=== PATIENT | female | born 1970 | race Caucasian/White ===

== ENCOUNTER 2019-10-28 09:58 | Inpatient (IN) | payer OTHER ==
[~2019-10-28] VITALS: Ht 154.9 cm; Wt 44.5 kg
[~2019-10-28 09:58] MED LIST: AMBIEN 10 MG TA10 MG PO; ANTI-DIARRHEA2 MG PO; BENTYL20 MG PO; CARAFATE 1 GM TA1 G1 PO; CITRATE OF MAG296 ML PO; CLONAZEPAM; CLONAZEPAM 0.50.5 M1 PO; CO Q-10150 MG PO; DULCOLAX5 MG PO; HYDROXYZINE HCL25 M1 PO; IRON325 PO; K-DUR 20 MEQ T20 MEQ PO; MIRALAX255 GM PO; NORCO 5-325 TA1 EACH PO; OXYCODONE HCL5 M1 PO; OXYCONTIN40 MG PO; PEPCID40 MG PO; PERCOCET 5-3251 EACH PO; PHENERGAN 25 MG25 M1 PO; PHENERGAN 25 MG25 MG PO; POTASSIUM20 PO; PRILOSEC40 MG PO; PROMS25 WY RECTAL; PROTONIX40 M2 PO; REMERON30 M1 PO; TIROSINT75 MCG PO; TRAMADOL 50 MG50 MG PO; ULTRAM 50MG TAB50 MG PO; ZANTAC 150MG T150 MG PO; ZOFRAN 4 MG ORAL4 M1 DIS; ZOFRAN ODT4 MG PO
[2019-10-28 10:03] VITALS: BP 149/71
[2019-10-28] MEDS ORDERED: MELATONIN3 M1 PO (10:19)
[2019-10-28 10:26] LABS: ABSOLUTE NEUTROPHILS 4.4 thou/uL (1.4-8.2); BASOPHILS 1.4 % (0.0-2.0); EOSINOPHILS 3.6 % (0.0-3.0); HEMATOCRIT 35.9 % (37.0-47.0); HEMOGLOBIN 11.8 gm/dL (12.0-15.0); MCH 30.2 pg (26.0-34.0); MCHC 32.8 g/dL (28.0-37.0); MCV 91.9 fL (80.0-100.0); MONOCYTES 6.9 % (1.0-8.0); PLATELET COUNT 456 thou/uL (150-400); POLYS 73.1 % (36.0-66.0); RBC 3.91 mil/uL (4.20-5.00); RDW 14.7 % (10.5-14.5)
[2019-10-28 10:34] LABS: ANION GAP 11 mmol/L (7-16); BUN 22 mg/dL (7-18); CALCIUM 9.3 mg/dL (8.5-10.1); CHLORIDE 101 mmol/L (98-107); CO2 27 mmol/L (21-32); CREATININE 0.8 mg/dL (0.6-1.0); GLUCOSE 116 mg/dL (74-106); POTASSIUM 3.8 mmol/L (3.5-5.1); SODIUM 139 mmol/L (136-145)
[2019-10-28 10:44] LABS: LIPASE 93 U/L (73-393); SGOT 17 U/L (15-37); SGPT 19 U/L (30-65); TOTAL BILIRUBIN 0.1 mg/dL (<0.1-1.0); TOTAL PROTEIN 7.4 g/dL (6.4-8.2); TROPONIN-I <0.06 ng/mL (<0.06)
[2019-10-28 12:24] LABS: URINE BILIRUBIN NEGATIVE (Negative); URINE BLOOD NEGATIVE (Negative); URINE CLARITY CLEAR; URINE COLOR YELLOW; URINE GLUCOSE-RANDOM* NEGATIVE (Negative); URINE KETONES NEGATIVE (Negative); URINE LEUKOCYTES-REFLEX NEGATIVE (Negative); URINE NITRITE-REFLEX NEGATIVE (Negative); URINE PROTEIN (DIPSTICK) NEGATIVE (Negative); URINE SPECIFIC GRAVITY <= 1.005 (1.005-1.035); URINE UROBILINOGEN 0.2 E.U./dl (0.2-1.0)
[2019-10-28 13:40] VITALS: BP 117/51
--- NOTE | 2019-10-28 14:15 | NUR ---
ATTEMPTED TO CALL REPORT TO 355 NURSE, NOT ABLE TO TAKE AT THIS TIME,.WILL CALL ME BACK
[2019-10-28 14:42] VITALS: BP 108/51
[2019-10-28 19:20] VITALS: BP 126/57
--- NOTE | 2019-10-29 03:42 | NUR ---
ASSUMED CARE OF PATIENT AT 1900. PATIENT IS A COVID-19 RULE OUT AND STILL AWAITING COVID TESTING RESULTS. PATIENT IS AFEBRILE ON SHIFT WITH A NON-PRODUCTIVE DRY COUGH. PATIENT CONSISTENTLY RATES PAIN IN ABDOMEN AN 8 OR ABOVE T/O NOC AND REQUESTS PRN MORPHINE ROUTINELY Q4H. ADMINISTERED ORDERED. PATIENT DID INQUIRE ABOUT STARTING BACLOFEN AND STATED SHE WOULD ASK HER PHYSICIAN ABOUT IT IN THE AM. PATIENT STABLE. WILL CONTINUE TO MONITOR.
[2019-10-29 04:17] VITALS: BP 124/77
[2019-10-29 05:25] LABS: HEMATOCRIT 36.7 % (37.0-47.0); HEMOGLOBIN 11.8 gm/dL (12.0-15.0); MCH 30.2 pg (26.0-34.0); MCHC 32.1 g/dL (28.0-37.0); MCV 94.3 fL (80.0-100.0); RBC 3.9 mil/uL (4.20-5.00); RDW 15.3 % (10.5-14.5); WBC 3.7 thou/uL (4.0-11.0)
[2019-10-29 05:26] LABS: CREATININE 0.5 mg/dL (0.6-1.0); POTASSIUM 4.1 mmol/L (3.5-5.1)
[2019-10-29 08:00] VITALS: BP 134/83
--- NOTE | 2019-10-29 08:48 | EKG ---
[facility] [place] [address] ELECTROCARDIOGRAM REPORT Name: KINJAL GROSSMAN Room #: 355-P ADM IN M.R.#: [id number] Admission: 10/28/19 Attend Phys: Jaison Diamond MD Discharge: Date of : 70 Report #: [id number] THIS REPORT FOR: cc: MYRA - No family physician/PCP FAM - No family physician/PCP Johann Goetz MD [facility] THIS REPORT FOR: //name// [facility] ED Test Date: 2019-10-28 Test Time: 10:06:30 Pat Name: KINJAL GROSSMAN Department: Room: [facility] Gender: F University Dean: KF : 1970 Requested By: Edwin Hay Order Number: [id number] MD: Johann Goetz Measurements Intervals [place] Rate: 94 P: 40 MN: 100 QRS: 73 QRSD: 85 T: 39 QT: 358 QTc: 448 Interpretive Statements Sinus rhythm Short MN interval Compared to ECG 05/03/2015 11:22:31 No significant change was found Electronically Signed On 10-29-2019 8:46:50 CDT by Johann Goetz [email or web address] <ELECTRONICALLY SIGNED> By: Johann Goetz MD, FACC 10/29/19 0846 1006 1006 Johann Goetz MD, [facility] /EPI
[2019-10-29 10:35] VITALS: BP 134/83
--- NOTE | 2019-10-29 11:09 | NUR ---
PT ADMITTED AT 10/28/19 FOR SBO AND COUGHING, PT IS A&OX3, PT'S VS ARE STABLE, PT DOES NOT HAVE FEVER, PT'S ABD PAIN CAN CONTROL BY MEDIACATION, PT'S ABD PAIN AND N/V HAVE IMPROVED, PT HAD BM YESTODAY, PT HAS PASS GAS TODAY, PT IS TOLERATED FULL LIQUID DIET, PT REQUESTS DC HOME TODAY, RN HAS CALLED HOSPITAL DR , AND RN HAS RECEIVED TO DC PT , SURGICAL DR IS OK FOR PT TO DC HOME.
[2019-10-29 12:31] VITALS: BP 136/68
--- NOTE | 2019-10-29 13:13 | NUR ---
INITIAL ASSESSMENT/DISCHARGE NOTE: FAB reviewed chart and spoke with nursing and attending physician. Pt was admitted due to abdominal pain/PSBO. Pt is in Enhanced Isolation to r/o COVID-19. Pt requesting to discharge today. Pt tolerating diet. Physician completed discharge orders. SW received call from pt's nurse stating pt needs transportation back to the hotel, where she has been staying. FAB spoke with pt via phone. Introduced role of SW. Pt is alert/orientated x 4. Pt reports that she has been living at the [address] [place] [address] . Pt states that she does not have anyone that would be able to provide transportation home. Pt is ambulatory. SW discussed process for arranging transportation for COVID-19 pending pts. Pt gave consent for SW to disclose to the transportation company that pt is COVID-19 pending. Pt verbalized understanding that she will need to wear a mask and gloves for transport. Pt states she will remain in her hotel room until she has received the results of the COVID-19 test. FAB discussed with Director of Case Mgmt. Authorization obtained to use [employer], who are able to transport "Presumptive of Known Positive Infectious Passengers." FAB spoke with Angelita at [facility] to arrange transportation for 1400 today. pt's info provided. [facility] to provide [facility] refrigerated company driver with mask and gloves. Voucher # [id number] provided to pt. FAB updated pt's RN, who has mask and gloves ready to give to pt's refrigerated company driver. [facility] to contact nurses station upon their arrival. Pt to be taken to main entrance. FAB spoke with pt via phone to provide update. No additional SW needs identified at this time, but is available to assist should needs arise.
--- NOTE | 2019-10-29 13:58 | NUR ---
RN HAS GIVING PT'S DC TEACHING, PT UNDERSTANDS WELL , PT DC TO HOME AT 1400PM.
== END 2019-10-29 14:00 | disposition home or self-care (01) | DRG 389 ==
LOC: ER 09:58 → EROBS 13:21 → 3W 14:47
PROVIDERS: Emergency Medicine; ADMIT Hospitalist
DX: K56.600 Partial intestinal obstruction, unspecified as to cause (principal); G10 Huntington's disease; F17.210 Nicotine dependence, cigarettes, uncomplicated; K59.00 Constipation, unspecified; Z87.442 Personal history of urinary calculi; Z09 Encounter for follow-up examination after completed treatment for conditions other than malignant neoplasm; Z86.14 Personal history of Methicillin resistant Staphylococcus aureus infection; Z88.1 Allergy status to other antibiotic agents; Z88.8 Allergy status to other drugs, medicaments and biological substances; Z79.899 Other long term (current) drug therapy
CPT/HCPCS: 10080

== ENCOUNTER 2020-04-05 10:07 | Emergency (ER) | payer OTHER ==
[~2020-04-05] VITALS: Ht 154.9 cm; Wt 39.9 kg
[~2020-04-05 10:07] MED LIST changes: +ATIVAN1 M1 PO; +AUGMENTIN 875-1 EACH PO; +BACLOFEN 10MG T10 MG PO; +BENTYL 10 MG CA10 M1 PO; +BENTYL 20 MG TA20 M1 PO; +DICYCLOMINE HCL20 MG PO; +MELATONIN3 M1 PO; +NORCO 5-325 TA1 EAC1 PO; +ONDANSETRON HCL4 M2 PO; +PRILOSEC OTC20 MG PO; +REMERON30 MG PO; +ZOFRAN ODT4 MG DISSOLVE; +ZOFRAN ODT4 MG SUBLING
[2020-04-05 11:27] LABS: ABSOLUTE NEUTROPHILS 3.4 thou/uL (1.4-8.2); EOSINOPHILS 0.5 % (0.0-3.0); HEMATOCRIT 34.6 % (37.0-47.0); HEMOGLOBIN 11.3 gm/dL (12.0-15.0); LYMPHOCYTES 18.3 % (24.0-44.0); MCH 28.9 pg (26.0-34.0); MCHC 32.6 g/dL (28.0-37.0); MCV 88.5 fL (80.0-100.0); MONOCYTES 7.1 % (1.0-8.0); PLATELET COUNT 323 thou/uL (150-400); POLYS 73.1 % (36.0-66.0); RBC 3.91 mil/uL (4.20-5.00); RDW 16.2 % (10.5-14.5); WBC 4.7 thou/uL (4.0-11.0)
[2020-04-05 11:37] LABS: URINE BILIRUBIN NEGATIVE (Negative); URINE BLOOD TRACE (Negative); URINE CLARITY CLEAR; URINE COLOR YELLOW; URINE GLUCOSE-RANDOM* NEGATIVE (Negative); URINE KETONES NEGATIVE (Negative); URINE LEUKOCYTES-REFLEX NEGATIVE (Negative); URINE NITRITE-REFLEX NEGATIVE (Negative); URINE PROTEIN (DIPSTICK) NEGATIVE (Negative); URINE SPECIFIC GRAVITY 1.015 (1.005-1.035); URINE UROBILINOGEN 0.2 E.U./dl (0.2-1.0)
[2020-04-05 11:53] LABS: CALCIUM 8.6 mg/dL (8.5-10.1); CREATININE 0.5 mg/dL (0.6-1.0); POTASSIUM 3.4 mmol/L (3.5-5.1)
[2020-04-05 11:59] LABS: ALBUMIN 2.8 g/dL (3.4-5.0); TOTAL BILIRUBIN 0.2 mg/dL (0.2-1.0); TOTAL PROTEIN 6.8 g/dL (6.4-8.2)
[2020-04-05] MEDS ORDERED: NORCO 5-325 TA1 EAC2 PO (14:10)
[2020-04-05] MEDS ORDERED: ONDANSETRON HCL4 M2 PO (14:10)
[2020-04-05] MEDS ORDERED: ERYTHROMYCIN250 MG PO (14:10)
[2020-04-05 14:36] VITALS: BP 153/69
== END 2020-04-05 14:40 | disposition home or self-care (01) ==
LOC: ER 10:07
PROVIDERS: Physician Assistant
DX: K31.84 Gastroparesis (principal); R11.2 Nausea with vomiting, unspecified; F17.210 Nicotine dependence, cigarettes, uncomplicated; Z98.84 Bariatric surgery status; Z90.49 Acquired absence of other specified parts of digestive tract; Z87.442 Personal history of urinary calculi; Z88.8 Allergy status to other drugs, medicaments and biological substances; Z88.6 Allergy status to analgesic agent; Z79.2 Long term (current) use of antibiotics; Z79.899 Other long term (current) drug therapy; Z91.018 Allergy to other foods; Z88.1 Allergy status to other antibiotic agents; Z91.048 Other nonmedicinal substance allergy status

== ENCOUNTER 2020-04-08 09:51 | Inpatient (IN) | payer OTHER ==
[~2020-04-08] VITALS: Ht 154.9 cm; Wt 39.9 kg
[~2020-04-08 09:51] MED LIST changes: +ERYTHROMYCIN250 MG PO; +NORCO 5-325 TA1 EAC2 PO
[2020-04-08] MEDS ORDERED: HYDROCODON-ACE1 EAC7 PO (09:56)
[2020-04-08 09:57] VITALS: BP 173/78
[2020-04-08 11:22] LABS: URINE BILIRUBIN NEGATIVE (Negative); URINE BLOOD TRACE (Negative); URINE CLARITY CLEAR; URINE COLOR YELLOW; URINE GLUCOSE-RANDOM* NEGATIVE (Negative); URINE KETONES NEGATIVE (Negative); URINE LEUKOCYTES-REFLEX NEGATIVE (Negative); URINE NITRITE-REFLEX NEGATIVE (Negative); URINE PROTEIN (DIPSTICK) NEGATIVE (Negative); URINE SPECIFIC GRAVITY 1.015 (1.005-1.035); URINE UROBILINOGEN 0.2 E.U./dl (0.2-1.0)
[2020-04-08 11:28] LABS: ABSOLUTE NEUTROPHILS 3.6 thou/uL (1.4-8.2); BASOPHILS 0.7 % (0.0-2.0); EOSINOPHILS 0.7 % (0.0-3.0); HEMATOCRIT 33.6 % (37.0-47.0); HEMOGLOBIN 11.4 gm/dL (12.0-15.0); LYMPHOCYTES 15.7 % (24.0-44.0); MCH 29.7 pg (26.0-34.0); MCHC 33.8 g/dL (28.0-37.0); MCV 87.9 fL (80.0-100.0); MONOCYTES 8.1 % (1.0-8.0); PLATELET COUNT 279 thou/uL (150-400); POLYS 74.8 % (36.0-66.0); RBC 3.83 mil/uL (4.20-5.00); RDW 16.1 % (10.5-14.5); WBC 4.8 thou/uL (4.0-11.0)
[2020-04-08 11:35] LABS: ANION GAP 8 mmol/L (7-16); BUN 10 mg/dL (7-18); CALCIUM 8.3 mg/dL (8.5-10.1); CHLORIDE 105 mmol/L (98-107); CO2 29 mmol/L (21-32); CREATININE 0.5 mg/dL (0.6-1.0); GLUCOSE 96 mg/dL (74-106); POTASSIUM 3.8 mmol/L (3.5-5.1); SODIUM 142 mmol/L (136-145)
[2020-04-08 11:39] LABS: ALBUMIN 2.9 g/dL (3.4-5.0); DIRECT BILIRUBIN < 0.1 mg/dL (<0.1-0.2); LIPASE 89 U/L (73-393); SGOT 16 U/L (15-37); SGPT 17 U/L (30-65); TOTAL BILIRUBIN 0.2 mg/dL (0.2-1.0)
[2020-04-08 15:58] LABS: AMP/METHAMP Negative (Negative); BARBITURATES Negative (Negative); BENZODIAZEPINES Negative (Negative); COCAINE Negative (Negative); METHADONE Negative (Negative); OPIATES POSITIVE (Negative); PCP Negative (Negative)
[2020-04-08 16:54] VITALS: BP 157/61
[2020-04-08 17:34] VITALS: BP 145/78
--- NOTE | 2020-04-08 20:54 | NUR ---
Assumed care of pt. at 1800. Pt. was calm and cooperative. Pt. was not in any pain at the moment. Pt. handed off to awake overnight monitor.
[2020-04-08 22:31] VITALS: BP 144/79
[2020-04-09 03:32] VITALS: BP 139/81
--- NOTE | 2020-04-09 05:37 | NUR ---
ASSUMED CARE OF PT AT 1900. PT IS A/O X4 AND UP AD JOSHUA. C/O PAIN AND NAUSEA TO STOMACH. PRN STOMACH DISCOMFORT AND NAUSEA MEDICATION GIVEN DIRECTED. PT UNABLE TO TOLERATE JELLO. STATES IT MAKES HER FEEL MORE SICK TO HER STOMACH. ABLE TO KEEP DOWN CHICKEN BROTH. NO FURTHER COMPLAINTS. PT IS CURRENTLY LYING IN HER BED AND WATCHING TV. CALL LIGHT IS WITHIN REACH. WILL CONTINUE TO MONITOR.
[2020-04-09 05:47] LABS: ALBUMIN 2.4 g/dL (3.4-5.0); CALCIUM 7.9 mg/dL (8.5-10.1); CREATININE 0.6 mg/dL (0.6-1.0); MAGNESIUM 2.3 mg/dL (1.8-2.4); POTASSIUM 4.7 mmol/L (3.5-5.1); TOTAL BILIRUBIN 0.2 mg/dL (0.2-1.0); TOTAL PROTEIN 6.1 g/dL (6.4-8.2)
[2020-04-09 08:24] VITALS: BP 145/73
[2020-04-09 16:44] VITALS: BP 148/72
--- NOTE | 2020-04-09 17:34 | NUR ---
Assumed care of pt. at 0700. Pt. was calm and cooperative. Pt. did become anxious and asked about anxiety medication. Physician notified, no orders received. Pt. remained stable with no other complaints for the duration of the shift.
[2020-04-09 19:47] VITALS: BP 151/71
--- NOTE | 2020-04-10 02:55 | NUR ---
PT ASSESSED AT START OF SHIFT. A&OX4 C/O ANXIETY CALLED ADMITTING PROVIDED AND HYDROXYZINE RESTARTED. PT UP AD JOSHUA WALKED THE HALLWAYS. IV INTACT WITH IVF. CALL LIGHT AT REACH WILL CONT WITH POC TILL EOS.
[2020-04-10 07:10] VITALS: BP 159/85
[2020-04-10 16:15] VITALS: BP 151/76
[2020-04-10 19:55] VITALS: BP 129/66
--- NOTE | 2020-04-10 20:15 | NUR ---
Assumed care of pt. at 0700. Pt. is calm and cooperative. Pt. constantly roams unit and asks when next medication is due. Pt. fixated and anxiety meds that she did not receive until order came from physician in the afternoon.
--- NOTE | 2020-04-11 03:55 | NUR ---
PATIENT ALERT AND ORIENTED X4. UP ADLIB IN ROOM AND HALLWAY. IVF INFUSING W/O COMPLICATION. INSTRUCTED THAT SHE WILL BE NPO AFTER MN DURING SHIFT CHANGE AND PATIENT ACKNOWLEDGED. BM DURING THE NIGHT. PATIENT HAS BEEN NPO SINCE 04/10/20 AT 2359. MEDICATED WITH ZOFRAN X1 AT TIME OF NOTE. PATIENT C/O DIARRHEA. WILL MONITOR.
[2020-04-11 05:46] LABS: HEMATOCRIT 38.8 % (37.0-47.0); HEMOGLOBIN 12.2 gm/dL (12.0-15.0); MCH 28.3 pg (26.0-34.0); MCHC 31.5 g/dL (28.0-37.0); RBC 4.31 mil/uL (4.20-5.00); WBC 3.1 thou/uL (4.0-11.0)
[2020-04-11 05:58] LABS: PROTIME 10.2 Seconds (9.3-11.4)
[2020-04-11 06:11] LABS: ALBUMIN 2.9 g/dL (3.4-5.0); CALCIUM 8.6 mg/dL (8.5-10.1); CREATININE 0.7 mg/dL (0.6-1.0); POTASSIUM 4.6 mmol/L (3.5-5.1); TOTAL BILIRUBIN 0.2 mg/dL (0.2-1.0); TOTAL PROTEIN 6.8 g/dL (6.4-8.2)
[2020-04-11 07:10] VITALS: BP 149/65
[2020-04-11 16:10] VITALS: BP 124/73
--- NOTE | 2020-04-11 16:24 | NUR ---
PT ADMITTED RELATED TO Gastroperesis. CM REVIEWED CHART AND SPOKE WITH CARE TEAM. CM CALLED AND SPOKE WITH PT AT BEDSIDE THIS DAY. PT APPREARED TO BE A&O X4. CM ROLE INTRODUCED. PT INDICATED SHE HAD BEEN STAYING IN A MOBILE HOME WITH HER FRIEND DAVIDSON. SHE INDICATED 4 STEPS TO ENTER AND NONE INSIDE. PT INDICATED SHE IS INTERESTED IN GOING TO A FACILITY. ASKED THAT REFERRAL BE SRNT TO [facility]. REFERRAL SENT. PT HAVING EGD TODAY. CM TO FOLLOW INDICATED WITH DC PLANNING.
--- NOTE | 2020-04-11 16:41 | NUR ---
FAXED REFERRAL TO [facility] RECEIVED CONFIRMATION AND LEFT MSG WITH MARIA DEL ROSARIO HANSEN. DP TO FOLLOW.
[2020-04-11 21:20] VITALS: BP 139/70
--- NOTE | 2020-04-12 00:57 | NUR ---
PT CARE ASSUMED WITH PATIENT IN ROOM AND IN BED WATCHING TV AT 1900.PT IS A/O X4.PT IS UP AD JOSHUA.PT WAS ON FULL LIQUID DIET AND NPO MIDNIGHT FOR EGD AND BARIUM SWALLOW IF COVID TEST RESULT IS NEGATIVE.PT C/O PF NAUSEA AND STOMACH CRAMPS AND HAD ZOFRAN AND DICYCLOMINE WITH RELIEF.WILL CONTINUE TO MONITOR PER POC
[2020-04-12 04:05] VITALS: BP 140/82
[2020-04-12 08:00] VITALS: BP 166/88
[2020-04-12] MEDS ORDERED: ERYTHROMYCIN500 MG PO (12:17)
[2020-04-12] MEDS ORDERED: DICYCLOMINE HCL20 MG PO (12:17)
[2020-04-12 13:05] VITALS: BP 166/88
--- NOTE | 2020-04-12 14:38 | NUR ---
[facility] PROVIDED PT W/[facility] CONTACT INFORMATION SO SHE CAN F/U W/ THE FACILITIES RE: LTC, [facility] SENT REFERRALS TO FACILITIES ON THE PT'S BEHALF.
--- NOTE | 2020-04-13 08:45 | HC ---
[facility] [place] [address] [address] CONSULTATION Name: CHAUNCEYKINJAL HILLS Room #: 437-P [facility] IN M.R.#: [id number] Admission: 04/08/20 Attend Phys: Дмитрий Zarate MD Discharge: 04/12/20 Date of : 70 Report #: [id number] THIS REPORT FOR: cc: MYRA - Aileen family physician/PCP MYRA - Aileen family physician/PCP Jorge Drake MD ~ CC: Jorge RENTERIA physician/PCP DATE OF SERVICE: 04/08/2020 HISTORY OF PRESENT ILLNESS: The patient is a 50-year-old female reportedly with a history of gastroparesis with recurrent nausea and vomiting, was seen in the Emergency Room for similar symptoms on 04/05/2020. Apparently, he has had a reaction to Reglan in the past; therefore, recommended erythromycin and Zofran, which she has been taking; however, erythromycin was too expensive apparently and the patient has not tried this. The patient has a complex history and that she has had multiple abdominal surgeries including a Billroth procedure and perhaps switched to a Sneha-en-Y procedure at some point. She has undergone upper endoscopies in the past, last one being several years ago per the patient with dilation. She denies any true dysphagia at this time. She says she has not been able to keep anything down in general, including her medications. She does report some abdominal cramping. She denies any fevers or chills. No chest pain or shortness of breath. No cough or sputum production at this time. Her gastric emptying study in the past that was abnormal. She has had multiple CT scans over the years on the computer. Most recent CT was on 04/05/2020 of the abdomen and pelvis. This showed surgical changes of gastric bypass surgery, similar to prior study. Moderate amount of food and liquid was present in the stomach at that time without a small-bowel obstruction. Diffuse small bowel distention on previous exam was significantly improved. Findings may represent a mild enteritis. No evidence of high-grade obstruction. Gallbladder is surgically absent. PAST MEDICAL AND SURGICAL HISTORY: Previous gastric bypass surgery. Apparently, the patient has had a history of peptic ulcer disease, possible Billroth surgery in the past and then reportedly a Sneha-en-Y anastomosis. I do not have a copy of these results. History of gastroparesis per the patient, [place]'s, previous history of pancreatitis, renal stones, chronic abdominal pain, previous cholecystectomy, appendectomy, hysterectomy, small-bowel obstruction and several PEG tubes in the past. CURRENT MEDICATIONS: Dicyclomine, Zofran, baclofen and Alexander p.r.n. She states she has not been taking this recently. Erythromycin was not able to be filled due to cost, levothyroxine, omeprazole 20 mg per day, Remeron and Ativan p.r.n. [address] [address] CONSULTATION Name: KINJAL GROSSMAN Room #: 437-P [facility] IN M.Lalito.#: [id number] Admission: 04/08/20 Attend Phys: Дмитрий Zarate MD Discharge: 04/12/20 Date of : 70 Report #: [id number] ALLERGIES: Multiple allergies. Please see chart for a list. REVIEW OF SYSTEMS: As per HPI. SOCIAL HISTORY: Long history of cigarette smoking. She denies any alcohol use. FAMILY HISTORY: Negative for colon cancer. PHYSICAL EXAMINATION: VITAL SIGNS: Temperature is 98.4, pulse 63, blood pressure is 157/61 and respiratory rate is 13. GENERAL: She is alert and oriented x 3, in no acute distress. HEENT: Sclerae nonicteric. Oropharynx clear. NECK: Supple, without lymphadenopathy. CARDIOVASCULAR: Regular rate and rhythm. CHEST: Clear to auscultation bilaterally. ABDOMEN: Soft. She is mildly tender to palpation in the midepigastrium. Previous midline incisions are well healed. She is nondistended. Positive bowel sounds. EXTREMITIES: No cyanosis, clubbing or edema. LABORATORY DATA: Sodium 142, potassium 3.8, chloride 105, bicarbonate 29, BUN 10, creatinine 0.5, glucose 96, AST is 16, lipase 89, total bilirubin 0.2, calcium 8.3, alkaline phosphatase 126, ALT 17, total protein 7.0, albumin 2.9. Lactic acid level 0.5. WBC 4.8, hemoglobin 11.4, platelet count is 279. ASSESSMENT AND PLAN: Recurrent nausea, vomiting and abdominal pain. The patient with a complex history likely history of gastroparesis. She has had multiple abdominal surgeries including what appears to be most recently a Sneha-en-Y gastric bypass anastomosis. I had a long discussion with the patient today. She is unable to take Reglan due to side effects. She was not able to afford the medication of erythromycin. I explained to her we can use erythromycin as an inpatient, however, will need to hopefully obtain erythromycin in a form that she can afford to prevent recurrent hospitalization. This may require compounding at a different pharmacy. In the meantime, we will start IV fluids, clear liquids and erythromycin 250 t.i.d. IV. At some point, may need to consider repeat upper endoscopy. We will COVID test at this time. Continue PPI therapy. I explained to the patient we would hold on any narcotics at this time. We will continue to use Bentyl or Levsin for abdominal pain. Thank you for allowing me to participate in her care. <ELECTRONICALLY SIGNED> By: Jorge Drake MD 04/13/20 0845 [id number] [id number] Jorge Darke MD /nt
== END 2020-04-12 13:17 | disposition home or self-care (01) | DRG 391 ==
LOC: ER 09:51 → EROBS 17:38 → 4S 17:38
PROVIDERS: Emergency Medicine; ADMIT Internal Medicine; ATTEND Internal Medicine
PROC: 0DJ08ZZ Inspection of Upper Intestinal Tract, Via Natural or Artificial Opening Endoscopic (ICD-10-PCS; principal; 2020-04-12)
DX: K31.84 Gastroparesis (principal); E43 Unspecified severe protein-calorie malnutrition; G10 Huntington's disease; Z68.1 Body mass index [BMI] 19.9 or less, adult; R10.9 Unspecified abdominal pain; G89.29 Other chronic pain; F17.210 Nicotine dependence, cigarettes, uncomplicated; K25.9 Gastric ulcer, unspecified as acute or chronic, without hemorrhage or perforation; Z20.828 Contact with and (suspected) exposure to other viral communicable diseases; Z79.899 Other long term (current) drug therapy; Z90.49 Acquired absence of other specified parts of digestive tract; Z87.442 Personal history of urinary calculi; Z86.14 Personal history of Methicillin resistant Staphylococcus aureus infection; Z88.8 Allergy status to other drugs, medicaments and biological substances; Z88.1 Allergy status to other antibiotic agents; Z91.02 Food additives allergy status; Z91.19 Patient's noncompliance with other medical treatment and regimen; Z71.6 Tobacco abuse counseling; Z90.710 Acquired absence of both cervix and uterus; Z93.1 Gastrostomy status
CPT/HCPCS: 10195; 62110; 62900; 70005

== ENCOUNTER 2020-11-07 11:16 | Inpatient (IN) | payer OTHER ==
[~2020-11-07] VITALS: Ht 154.9 cm; Wt 44.9 kg
[~2020-11-07 11:16] MED LIST changes: +ERYTHROMYCIN500 MG PO; +HYDROCODON-ACE1 EAC7 PO
[2020-11-07 11:22] VITALS: BP 169/93
[2020-11-07 12:16] LABS: ABSOLUTE NEUTROPHILS 3.2 thou/uL (1.4-8.2); BASOPHILS 0.7 % (0.0-2.0); HEMATOCRIT 42.2 % (37.0-47.0); HEMOGLOBIN 13.7 gm/dL (12.0-15.0); LYMPHOCYTES 23.5 % (24.0-44.0); MCHC 32.4 g/dL (28.0-37.0); MCV 92.4 fL (80.0-100.0); MONOCYTES 8.1 % (1.0-8.0); PLATELET COUNT 265 thou/uL (150-400); POLYS 66.7 % (36.0-66.0); RBC 4.56 mil/uL (4.20-5.00); RDW 15.9 % (10.5-14.5); WBC 4.9 thou/uL (4.0-11.0)
[2020-11-07 12:20] LABS: URINE BILIRUBIN NEGATIVE (Negative); URINE BLOOD TRACE (Negative); URINE CLARITY CLEAR; URINE COLOR YELLOW; URINE GLUCOSE-RANDOM* NEGATIVE (Negative); URINE KETONES NEGATIVE (Negative); URINE LEUKOCYTES-REFLEX NEGATIVE (Negative); URINE NITRITE-REFLEX NEGATIVE (Negative); URINE PROTEIN (DIPSTICK) TRACE (Negative); URINE SPECIFIC GRAVITY >= 1.030 (1.005-1.035); URINE UROBILINOGEN 0.2 E.U./dl (0.2-1.0)
[2020-11-07 12:27] LABS: CALCIUM 8.8 mg/dL (8.5-10.1); CREATININE 0.7 mg/dL (0.6-1.0); POTASSIUM 3.7 mmol/L (3.5-5.1)
[2020-11-07 12:33] LABS: ALBUMIN 3.5 g/dL (3.4-5.0); TOTAL BILIRUBIN 0.2 mg/dL (0.2-1.0); TOTAL PROTEIN 7.4 g/dL (6.4-8.2)
[2020-11-07 19:21] VITALS: BP 134/68
[2020-11-07 19:31] VITALS: BP 128/77
[2020-11-07 19:53] VITALS: BP 148/75
--- NOTE | 2020-11-08 03:11 | NUR ---
PT ADMITTED INTO UNIT AT AROUND 1945 HRS. PT IS ALERT AND ORIENTED. WITH PSBO. SO FAR C/O NAUSEA WITH NO EMESIS. PAIN MANAGED BY MORPHINE.NPO. IVF INFUSING. AFEBRILE. DENIES COUGH OR SOA.APPEARS TO BE IN NO DISTRESS AT THIS TIME.
[2020-11-08 04:15] VITALS: BP 146/85
[2020-11-08 06:01] LABS: HEMATOCRIT 33.3 % (37.0-47.0); MCH 30.5 pg (26.0-34.0); MCHC 32.7 g/dL (28.0-37.0); MCV 93.1 fL (80.0-100.0); RBC 3.58 mil/uL (4.20-5.00); WBC 3.7 thou/uL (4.0-11.0)
[2020-11-08 06:16] LABS: HEMOGLOBIN 10.9 gm/dL (12.0-15.0)
[2020-11-08 06:23] LABS: CALCIUM 7.6 mg/dL (8.5-10.1); CREATININE 0.5 mg/dL (0.6-1.0); POTASSIUM 3.2 mmol/L (3.5-5.1)
--- NOTE | 2020-11-08 08:51 | NUR ---
CONSULT [id number] COMPLETED BY THIS CREATIVE SERVICES WRITER. SHE IS [place], YET THERE IS NO FINANCIAL DATA ANALYST HERE TODAY. I TOLD HER SHE IS ON THE LIST AND SHE SHOULD BE VISITED BY HIM TOMORROW.
[2020-11-08 08:52] VITALS: BP 144/86
--- NOTE | 2020-11-08 11:17 | NUR ---
Assumed care of pt at 0700. Pt a&ox4. Pain and nausea controlled with medications. IVF infusing. Upper GI x-ray ordered. Up ad true. Gi doctor visited with patient this am. On bowel rest for another 24 hours. Call light within reach. Will continue to monitor.
--- NOTE | 2020-11-08 12:38 | NUR ---
ASSESSMENT: CM REVIEWED CHART AND MET WITH PATIENT AT THE BEDSIDE. PT IS ALERT AND ORIENTED X4. PT IS ADMITTED DUE TO POSSIBLE SBO/GASTRIC OUTLET OBSTRUCTION. PT IS CURRENTLY NPO. PT HAS HX OF [place] DISEASE. PT REPORTS SHE IS CURRENTLY LIVING IN TRANSITIONAL HOUSING WITH THREE OTHER WOMEN AND HAS A CLINICAL PSYCHOLOGY TEACHER THROUGH [facility] (PT REPORTS SHE HAS NOTIFIED HER THAT SHE IS HERE). PT REPORTS SHE IS FULLY INDEPENDENT WITH ADLS AND AMBULATION. PT REPORTS NO HX OF HH. PT REPORTS HER PCP IS DR. MCGEE AT [facility]. CM DISCUSSED ROLE. PT DOES NOT ANTICIPATE HAVING ANY NEEDS FROM CM. CM WILL CONTINUE TO FOLLOW TO ASSIST NEEDED.
[2020-11-08 15:37] VITALS: BP 178/93
[2020-11-08 19:46] VITALS: BP 159/88
[2020-11-08 23:42] VITALS: BP 153/91
--- NOTE | 2020-11-09 00:15 | NUR ---
ASSESSED AT START OF SHIFT 1900. PT C/O PAIN AND NAUSEA. IV MEDICATION GIVEN. XANAX ALSO PROVIDED. IV INTACT AND FLUIDS INFUSING. PT UP AD JOSHUA TO THE BATHROOM STEADY GAIT. NPO CONTINUES FOR BOWEL REST. CALL LIGHT AT REACH AND WILL CONT TO MONITOR. NO FURTHER SIGNS OF DISCOMFORT.
[2020-11-09 05:20] LABS: HEMATOCRIT 36.1 % (37.0-47.0); HEMOGLOBIN 11.9 gm/dL (12.0-15.0); MCH 30.1 pg (26.0-34.0); MCHC 32.8 g/dL (28.0-37.0); MCV 91.9 fL (80.0-100.0); RBC 3.93 mil/uL (4.20-5.00); RDW 15.3 % (10.5-14.5); WBC 3.8 thou/uL (4.0-11.0)
[2020-11-09 05:38] LABS: CALCIUM 7.9 mg/dL (8.5-10.1); CREATININE 0.6 mg/dL (0.6-1.0)
[2020-11-09 07:55] VITALS: BP 147/91
[2020-11-09 15:20] VITALS: BP 149/81
--- NOTE | 2020-11-09 17:26 | NUR ---
ASSUMED PT CARE THIS AM. PT IS ALERT & ORIENTES X4. PT IS UP AD JOSHUA. PT C/O OF NAUSEA AND PAIN. GIVEN PAIN AND NAUSEA MEDICATION. PT IS ON ROOM AIR. PT AMBULATE TODAY AT THE HALLWAY. PT ON THE BED WATCHING TV, BED ON THE LOWEST POSITION, SIDE RAILS UP, CALL LIGHT WITHIN REACH. WILL CONTINUE TO MONITOR PT. FOLLOW POC.
[2020-11-09 20:02] VITALS: BP 162/85
[2020-11-09 23:06] VITALS: BP 140/79
--- NOTE | 2020-11-10 03:11 | NUR ---
ASSESSED AT START OF SHIFT. PT A&OX4. C/O OF PAIN AND NAUSEA, MORPHINE AND ZOFRAN GIVEN ROUND THE CLOCK NO EMESIS NOTED. RATES ABDOMINAL PAIN 02/04. PT UP AD JOSHUA TO THE BATHROOM. ON CLEAR LIQUID DIET. IV INTACT AND FLUIDS INFUSING WILL CONT TO MONITOR.
[2020-11-10 04:18] VITALS: BP 138/66
[2020-11-10 05:06] LABS: HEMATOCRIT 37.3 % (37.0-47.0); HEMOGLOBIN 11.9 gm/dL (12.0-15.0); MCH 29.9 pg (26.0-34.0); MCV 93.5 fL (80.0-100.0); RBC 3.99 mil/uL (4.20-5.00); RDW 15.3 % (10.5-14.5); WBC 3.8 thou/uL (4.0-11.0)
[2020-11-10 06:00] LABS: CREATININE 0.6 mg/dL (0.6-1.0); POTASSIUM 3.5 mmol/L (3.5-5.1)
[2020-11-10 07:44] VITALS: BP 136/84
[2020-11-10 08:24] VITALS: BP 136/84
--- NOTE | 2020-11-10 10:02 | NUR ---
Assumed care of pt at 0700. Pt a&ox4. C/o abd pain but pain controlled with prn pain meds. UP ad true. IV fluids infusing. Pt states she needs to go home now due to an emergency. Provider aware. Pt leaving AMA. Peripheral Edp Equipment Operator notified.
--- NOTE | 2020-11-10 12:49 | NUR ---
ON-GOING ASSESSMENT: CM REVIEWED CHART. PER BEDSIDE RN PT LEFT AMA. CASE CLOSED.
== END 2020-11-10 10:12 | disposition left against medical advice (07) | DRG 388 ==
LOC: ER 11:16 → EROBS 14:40 → 4S 19:38
PROVIDERS: Nurse Practitioner Family; ADMIT Hospitalist; ATTEND Hospitalist
DX: K56.600 Partial intestinal obstruction, unspecified as to cause (principal); E43 Unspecified severe protein-calorie malnutrition; K31.1 Adult hypertrophic pyloric stenosis; G10 Huntington's disease; G89.29 Other chronic pain; R10.9 Unspecified abdominal pain; F17.210 Nicotine dependence, cigarettes, uncomplicated; F41.9 Anxiety disorder, unspecified; E03.9 Hypothyroidism, unspecified; D64.9 Anemia, unspecified; K31.84 Gastroparesis; Z53.29 Procedure and treatment not carried out because of patient's decision for other reasons; Z68.1 Body mass index [BMI] 19.9 or less, adult; Z87.11 Personal history of peptic ulcer disease; Z87.442 Personal history of urinary calculi; Z90.49 Acquired absence of other specified parts of digestive tract; Z93.1 Gastrostomy status; Z88.8 Allergy status to other drugs, medicaments and biological substances; Z91.02 Food additives allergy status
CPT/HCPCS: 10195

== ENCOUNTER 2021-03-17 15:59 | Emergency (ER) | payer OTHER ==
[~2021-03-17] VITALS: Ht 154.9 cm; Wt 43.1 kg
[2021-03-17 17:31] LABS: ABSOLUTE NEUTROPHILS 4.2 thou/uL (1.4-8.2); BASOPHILS 0.7 % (0.0-2.0); EOSINOPHILS 1.1 % (0.0-3.0); HEMATOCRIT 38.5 % (37.0-47.0); HEMOGLOBIN 12.4 gm/dL (12.0-15.0); LYMPHOCYTES 24.5 % (24.0-44.0); MCH 29.2 pg (26.0-34.0); MCHC 32.2 g/dL (28.0-37.0); MCV 90.8 fL (80.0-100.0); MONOCYTES 7.5 % (1.0-8.0); PLATELET COUNT 224 thou/uL (150-400); POLYS 66.2 % (36.0-66.0); RBC 4.24 mil/uL (4.20-5.00); RDW 14.9 % (10.5-14.5); WBC 6.3 thou/uL (4.0-11.0)
[2021-03-17 17:43] LABS: CALCIUM 8.6 mg/dL (8.5-10.1); CREATININE 0.8 mg/dL (0.6-1.0); POTASSIUM 3.5 mmol/L (3.5-5.1)
[2021-03-17 17:48] LABS: URINE BILIRUBIN NEGATIVE (Negative); URINE BLOOD 1+ (Negative); URINE CLARITY CLEAR; URINE COLOR YELLOW; URINE GLUCOSE-RANDOM* NEGATIVE (Negative); URINE KETONES NEGATIVE (Negative); URINE LEUKOCYTES-REFLEX NEGATIVE (Negative); URINE NITRITE-REFLEX NEGATIVE (Negative); URINE PROTEIN (DIPSTICK) NEGATIVE (Negative); URINE SPECIFIC GRAVITY 1.025 (1.005-1.035); URINE UROBILINOGEN 0.2 E.U./dl (0.2-1.0)
[2021-03-17 17:49] LABS: ALBUMIN 3.4 g/dL (3.4-5.0); MAGNESIUM 1.8 mg/dL (1.8-2.4); TOTAL BILIRUBIN 0.1 mg/dL (0.2-1.0)
[2021-03-17 17:56] LABS: BACTERIA-REFLEX 1-9 Few /HPF (None Seen); CASTS None Seen /LPF (None Seen); CRYSTALS None Seen /LPF (None Seen); MUCUS 4-6 Moderate strn/LPF (None Seen); SQUAMOUS 4-10 Moderate /LPF (0-3); URINE RBC 3-10 Few /HPF (NONE SEEN); URINE WBC-REFLEX 0-5 Rare /HPF (0-5)
[2021-03-17] MEDS ORDERED: CARAFATE1 GM/10 ML PO (18:22)
[2021-03-17] MEDS ORDERED: PROTONIX40 M2 PO (18:22)
[2021-03-17] MEDS ORDERED: BENTYL 10 MG CA10 M1 PO (21:34)
[2021-03-17 21:42] VITALS: BP 176/90
== END 2021-03-17 21:42 | disposition home or self-care (01) ==
LOC: ER 15:59
PROVIDERS: Emergency Medicine
DX: K52.9 Noninfective gastroenteritis and colitis, unspecified (principal); R10.9 Unspecified abdominal pain; R11.2 Nausea with vomiting, unspecified; F17.210 Nicotine dependence, cigarettes, uncomplicated; Z90.49 Acquired absence of other specified parts of digestive tract; Z79.899 Other long term (current) drug therapy; Z79.891 Long term (current) use of opiate analgesic; Z88.6 Allergy status to analgesic agent; Z88.4 Allergy status to anesthetic agent; Z91.040 Latex allergy status; Z88.2 Allergy status to sulfonamides; Z91.018 Allergy to other foods

== ENCOUNTER 2021-04-22 15:33 | Emergency (ER) | payer OTHER ==
[~2021-04-22] VITALS: Ht 165.1 cm; Wt 59.0 kg
--- NOTE | ~2021-04-22 | EMS ---
[facility] [address] [address] EMS Patient Care Report Name: KINJAL GROSSMAN Room #: DEP DENICE Joshi#: [id number] Admission: 04/22/21 Attend Phys: Discharge: 04/22/21 Date of : 70 Report #: [id number] THIS REPORT FOR: //name// Report Transmitted: 04/22/2021 17:[address] [facility] Incident [id number] @ 04/22/2021 14:55 Incident Location [address] [place] [address] Patient KINJAL GROSSMAN Female, 51 Years 1970 Patient Address [address] [place] [address] Patient History [place]'s Disease, Patient Allergies Compazine, Patient Medications Other, Chief Complaint Abdominal pain, nausea, vomiting Disposition Transported No Lights/[place] Dispatch Reason Sick Person Transported To [facility] Narrative Dispatched for abdominal pain. Upon arrival M41 found the 51 year old female patient sitting in a chair outside of her residence. The patient stated a chief complaint of 8/10 abdominal pain, with cramping, nausea and vomiting for about a week, worsening over the previous two days. The patient was able to stand and [facility] [address] [place] [address] EMS Patient Care Report Name: KINJAL GROSSMAN Room #: DEP ER Madelyn#: [id number] Admission: 04/22/21 Attend Phys: Discharge: 04/22/21 Date of : 70 Report #: [id number] was assisted onto the stretcher then secured inside the ambulance. She stated a desire to be transported to [facility] ED for evaluation. Vitals were obtained and stable. Transport was initiated. During transport IV access was attempted and unsuccessful. The patient stated a history of [place]'s disease. Vitals remained stable. The patient did not have a fever. Upon arrival M41 escorted the patient to the ED and patient care was transferred to EDRN Liza. Initial Vitals @15:02P: 78,BP: 203/110,SpO2: 99, @15:01P: 85,R: 20,BP: 197/83,Pain: 8/10,GCS: 15,CO: 17,SpO2: 98,Revised Trauma: 12, @15:15P: 69,R: 20,BP: 170/93,Pain: 8/10,GCS: 15,SpO2: 97,Revised Trauma: 12, Assessments @15:02MENTAL:No Abnormalities,SKIN:No Abnormalities,HEENT:Head/Face: No Abnormalities,Eyes: No Abnormalities,Neck/Airway: No Abnormalities,LUNG SOUNDS:General: Vomiting,General: Nausea,General: Other,Left Upper: No Abnormalities,Right Upper: No Abnormalities,Left Lower: No Abnormalities,Right Lower: No Abnormalities,ABDOMEN:General: Vomiting,General: Nausea,General: Other,Left Upper: No Abnormalities,Right Upper: No Abnormalities,Left Lower: No Abnormalities,Right Lower: No Abnormalities,PELVIS//GI:No Abnormalities,EXTREMITIES:Left Arm: No Abnormalities,Right Arm: No Abnormalities,Left Leg: No Abnormalities,Right Leg: No Abnormalities,PULSE:Radial: 2+ Normal,NEURO:No Abnormalities,@15:20MENTAL:No Abnormalities,SKIN:No Abnormalities,HEENT:Head/Face: No Abnormalities,Eyes: No Abnormalities,Neck/Airway: No Abnormalities,LUNG SOUNDS:General: Vomiting,General: Nausea,General: Other,Left Upper: No Abnormalities,Right Upper: No Abnormalities,Left Lower: No Abnormalities,Right Lower: No Abnormalities,ABDOMEN:General: Vomiting,General: Nausea,General: Other,Left Upper: No Abnormalities,Right Upper: No Abnormalities,Left Lower: No Abnormalities,Right Lower: No Abnormalities,PELVIS//GI:No Abnormalities,EXTREMITIES:Left Arm: No Abnormalities,Right Arm: No Abnormalities,Left Leg: No Abnormalities,Right Leg: No Abnormalities,PULSE:Radial: 2+ Normal,NEURO:No Abnormalities, Impression Abdominal Pain Procedures @15:02ALS AssessmentResponse: UnchangedSucceeded@15:20ALS AssessmentResponse: UnchangedSucceeded@15:06Saline Lock cc (22 ga) Site: Hand-LeftResponse: UnchangedFailed@15:10 cc (22 ga) Site: Forearm-LeftResponse: UnchangedFailed [address] [address] EMS Patient Care Report Name: KINJAL GROSSMAN Room #: [facility] DENICE Joshi#: [id number] Admission: 04/22/21 Attend Phys: Discharge: 04/22/21 Date of : 70 Report #: [id number] 14:53,Call Received 14:53,Psap Call 14:55,Dispatched 14:56,En Route 15:00,On Scene 15:01,At Patient 15:01,BP: 197/83 M,PULSE: 85,RR: 20 R,SPO2: 98 Ox,ETCO2: ,BG: ,PAIN: 8,GCS: 15, 15:02,ALS Assessment,Response: UnchangedSucceeded, 15:02,BP: 203/110 M,PULSE: 78,RR: R,SPO2: 99 Ox,ETCO2: ,BG: ,PAIN: ,GCS: , 15:04,Depart Scene 15:06,Saline Lock cc 22 ga Site: Hand-Left,Response: UnchangedFailed, 15:10, cc 22 ga Site: Forearm-Left,Response: UnchangedFailed, 15:15,BP: 170/93 M,PULSE: 69,RR: 20 R,SPO2: 97 Ox,ETCO2: ,BG: ,PAIN: 8,GCS: 15, 15:20,ALS Assessment,Response: UnchangedSucceeded, 15:27,At Destination 15:58,Call Closed Disclaimer v1.1 Copyright 2020 [employer] This EMS Care Summary contains data elements from the applicable legal record (which may be displayed differently). It is designed to provide pertinent information for the following purposes: continuity of care, clinical quality, and state data reporting. The complete legal record is available to ED staff and administrators of the receiving hospital in ES's Patient Tracker. All data is provided "as is."
[~2021-04-22 15:33] MED LIST changes: +CARAFATE1 GM/10 ML PO
[2021-04-22 16:10] LABS: ABSOLUTE NEUTROPHILS 4.9 thou/uL (1.4-8.2); BASOPHILS 0.8 % (0.0-2.0); EOSINOPHILS 1.4 % (0.0-3.0); HEMATOCRIT 37.1 % (37.0-47.0); HEMOGLOBIN 11.9 gm/dL (12.0-15.0); LYMPHOCYTES 16.2 % (24.0-44.0); MCH 28.7 pg (26.0-34.0); MCV 89.6 fL (80.0-100.0); MONOCYTES 6.6 % (1.0-8.0); PLATELET COUNT 272 thou/uL (150-400); RBC 4.13 mil/uL (4.20-5.00); RDW 16.6 % (10.5-14.5); WBC 6.5 thou/uL (4.0-11.0)
[2021-04-22 16:16] LABS: CALCIUM 8.7 mg/dL (8.5-10.1); CREATININE 0.6 mg/dL (0.6-1.0)
[2021-04-22 16:18] LABS: POTASSIUM 4.7 mmol/L (3.5-5.1)
[2021-04-22 16:22] LABS: ALBUMIN 3.1 g/dL (3.4-5.0); TOTAL BILIRUBIN 0.3 mg/dL (0.2-1.0); TOTAL PROTEIN 7.4 g/dL (6.4-8.2)
[2021-04-22] MEDS ORDERED: ONDANSETRON HCL4 M2 PO (17:01)
[2021-04-22] MEDS ORDERED: APAP W/CODEINE1 TA2 PO (17:01)
[2021-04-22 17:15] VITALS: BP 176/90
== END 2021-04-22 17:15 | disposition home or self-care (01) ==
LOC: ER 15:33
PROVIDERS: Emergency Medicine
DX: R10.84 Generalized abdominal pain (principal); R19.7 Diarrhea, unspecified; R11.10 Vomiting, unspecified; Z88.8 Allergy status to other drugs, medicaments and biological substances; Z88.1 Allergy status to other antibiotic agents; Z91.018 Allergy to other foods

== ENCOUNTER 2021-05-17 15:10 | Inpatient (IN) | payer OTHER ==
[~2021-05-17] VITALS: Ht 154.9 cm; Wt 44.0 kg
--- NOTE | ~2021-05-17 | EMS ---
[facility] [address] [place] [address] EMS Patient Care Report Name: KINJAL GROSSMAN Room #: 449-I ADM IN M.[place]al[place].#: [id number] Admission: 05/17/21 Attend Phys: Дмитрий Zarate MD Discharge: Date of : 70 Report #: [id number] THIS REPORT FOR: //name// Report Transmitted: 05/18/2021 09:08 EMS Care Summary [facility] Incident [id number] @ 05/17/2021 14:31 Incident Location [address] [place] [address] Patient KINJAL GROSSMAN Female, 51 Years 1970 Patient Address [address] [place] [address] Patient History Gastrointestinal Problems,Hypertension (HTN),Gastro-Esophageal Reflux Disease (GERD),Gastric Ulcer,Rosedale's Disease, Patient Allergies Compazine, Patient Medications Zofran, Baclofen, Other, Protonix, Carafate, Remeron, Chief Complaint Abdominal Pain Disposition Transported No Lights/[place] Dispatch Reason Abdominal Pain/Problems Transported To [facility] Narrative EMS DISPATCHED FOR A 51 YR OLD FEMALE COMPLAINING OF ABDOMINAL PAIN. P43 ARRIVED ON SCENE AND BEGAN ASSESSING AND CARING FOR PATIENT FOUND OUTSIDE [facility] [address] [place] [address] EMS Patient Care Report Name: KINJAL GROSSMAN Room #: 449-I ADM IN Madelyn#: [id number] Admission: 05/17/21 Attend Phys: Дмитрий Zarate MD Discharge: Date of : 70 Report #: [id number] [facility]. VITALS TAKEN. M43 ARRIVED ON SCENE AND ASSUMED PATIENT CARE. PATIENT STATED THAT SHE HAS BEEN DEALING WITH COME AND GO ABDOMINAL PAIN FOR ROUGHLY 2 WEEKS. SHE HAS AN EXTENSIVE ABDOMINAL HISTORY WITH SEVERAL SURGERIES INCLUDED. PATIENT WAS ABLE TO WALK TO THE AMBULANCE AND PLACED ON COT IN SEMI RANGEL POSITION. TRANSPORT BEGAN. PATIENT PLACED ON 4 LEAD SHOWING SINUS RHYTHM. VITALS TAKEN. PATIENT INFORMATION GATHERED FROM PATIENT. PATIENT REFUSED IV. VITALS TAKEN. PATIENT INFO GIVEN TO RECEIVING FACILITY VIA [employer] RADIO. PATIENT OFFLOADED FROM AMBULANCE AND TAKEN INTO [facility] ED FOR MD ASSESSMENT. CARE TRANSFERRED. SIGNATURES OBTAINED. M43 RETURNED TO SERVICE. Initial Vitals @14:43P: 86,R: 16,BP: 172/83,Pain: 6/10,GCS: 15,CO: 8,SpO2: 97,Revised Trauma: 12,ND Suspected: false @14:56P: 72,R: 11,BP: 150/89,Pain: 6/10,GCS: 15,CO: 9,SpO2: 94,Revised Trauma: 12,ND Suspected: false Assessments @14:40MENTAL:Person Oriented,Time Oriented,Place Oriented,Event Oriented,SKIN:HEENT:LUNG SOUNDS:ABDOMEN:PELVIS//GI:EXTREMITIES:PULSE:Radial: 2+ Normal,NEURO:@14:53MENTAL:No Abnormalities,SKIN:HEENT:LUNG SOUNDS:General: Nausea,ABDOMEN:General: Nausea,PELVIS//GI:EXTREMITIES:PULSE:Radial: 2+ Normal,NEURO: Impression Abdominal Pain Procedures @PTAALS Assessment Response: UnchangedSucceeded @14:44 3-Lead ECG Response: UnchangedSucceeded @14:53 ALS Assessment Response: UnchangedSucceeded @14:40 ALS Assessment Response: UnchangedSucceeded Timeline HYPERBARIC TECHNICIAN,ALS Assessment,Response: UnchangedSucceeded, 14:29,Call Received 14:29,Psap Call 14:31,Dispatched 14:33,En Route 14:39,On Scene 14:40,At Patient 14:40,ALS Assessment,Response: UnchangedSucceeded, 14:42,Depart Scene 14:43,BP: 172/83 M,PULSE: 86,RR: 16 R,SPO2: 97 Ox,ETCO2: ,BG: ,PAIN: 6,GCS: 15, [address] [address] EMS Patient Care Report Name: KINJAL GROSSMAN Room #: 449-I ADM IN [facility]#: [id number] Admission: 05/17/21 Attend Phys: Дмитрий Zarate MD Discharge: Date of : 70 Report #: [id number] 14:44,3-Lead ECG,Response: UnchangedSucceeded, 14:53,ALS Assessment,Response: UnchangedSucceeded, 14:56,BP: 150/89 M,PULSE: 72,RR: 11 R,SPO2: 94 Ox,ETCO2: ,BG: ,PAIN: 6,GCS: 15, 15:05,At Destination 15:34,Call Closed Disclaimer v1.1 Copyright 202 [employer] This EMS Care Summary contains data elements from the applicable legal record (which may be displayed differently). It is designed to provide pertinent information for the following purposes: continuity of care, clinical quality, and state data reporting. The complete legal record is available to ED staff and administrators of the receiving hospital in [employer] Patient Tracker. All data is provided "as is."
[2021-05-17 15:10] VITALS: BP 193/89
[~2021-05-17 15:10] MED LIST changes: +APAP W/CODEINE1 TA2 PO
[2021-05-17 15:51] LABS: BASOPHILS 0.5 % (0.0-2.0); EOSINOPHILS 0.7 % (0.0-3.0); HEMATOCRIT 33.4 % (37.0-47.0); HEMOGLOBIN 11.1 gm/dL (12.0-15.0); LYMPHOCYTES 26.1 % (24.0-44.0); MCH 29.7 pg (26.0-34.0); MCHC 33.1 g/dL (28.0-37.0); MCV 89.9 fL (80.0-100.0); MONOCYTES 10.8 % (1.0-8.0); PLATELET COUNT 234 thou/uL (150-400); POLYS 61.9 % (36.0-66.0); RBC 3.72 mil/uL (4.20-5.00); RDW 17.5 % (10.5-14.5); WBC 4.9 thou/uL (4.0-11.0)
[2021-05-17 16:07] LABS: CALCIUM 8.6 mg/dL (8.5-10.1); CREATININE 0.6 mg/dL (0.6-1.0); POTASSIUM 3.2 mmol/L (3.5-5.1)
[2021-05-17 16:07] LABS: URINE BILIRUBIN NEGATIVE (Negative); URINE BLOOD 1+ (Negative); URINE CLARITY CLEAR; URINE COLOR YELLOW; URINE GLUCOSE-RANDOM* NEGATIVE (Negative); URINE KETONES NEGATIVE (Negative); URINE LEUKOCYTES-REFLEX NEGATIVE (Negative); URINE NITRITE-REFLEX NEGATIVE (Negative); URINE PROTEIN (DIPSTICK) NEGATIVE (Negative); URINE SPECIFIC GRAVITY 1.025 (1.005-1.035); URINE UROBILINOGEN 0.2 E.U./dl (0.2-1.0)
[2021-05-17 16:13] LABS: ALBUMIN 2.9 g/dL (3.4-5.0); TOTAL BILIRUBIN 0.1 mg/dL (0.2-1.0); TOTAL PROTEIN 6.3 g/dL (6.4-8.2)
[2021-05-17 16:42] LABS: SQUAMOUS 0-3 Few /LPF (0-3); URINE WBC-REFLEX 0-5 Rare /HPF (0-5)
[2021-05-17 16:43] LABS: BACTERIA-REFLEX 1-9 Few /HPF (None Seen); URINE RBC 1-2 Rare /HPF (NONE SEEN)
[2021-05-17] MEDS ORDERED: TRAMADOL 50 MG50 MG PO (19:28)
[2021-05-17] MEDS ORDERED: BUSPIRONE HCL5 MG PO (19:28)
[2021-05-17 19:36] VITALS: BP 168/81
[2021-05-17 19:37] VITALS: BP 168/81
[2021-05-17 20:07] VITALS: BP 185/87
[2021-05-17 23:22] VITALS: BP 174/95
[2021-05-18 00:46] VITALS: BP 104/80
--- NOTE | 2021-05-18 01:26 | NUR ---
Pt admitted from ED @1999 via WC accompanied by staff. A/OX4,VSS. Up ad true w/o problems. C/o abd pain,nausea w/o emesis. Medicated per EMAR with relief reported. BS hyperactive,reports BM earlier today. Personal items/call light within reach,will continue to monitor pt.
--- NOTE | 2021-05-18 04:16 | NUR ---
PT ARRIVE ON THE UNIT AT 2014. PT WAS STABLE, ALERT AND ORIENTEDX4. PT C/O PAIN AND NAUSEA WHICH WAS MANAGED BY PRN MEDS. PT WAS ORIENTED TO THE ROOM AND EDUCATED ON THE USE OF CALL LIGHT. PT IS UP AD JOSHUA TO THE BR. PT HAS R JUGULAR AND L FOREARM FOR PIV. PT IS ON RA. MEDS WERE GIVEN PER EMAR ORDERS. FALL PRECAUTIONS IN PLACE. WILL CONTINUE TO MONITOR.
[2021-05-18 06:17] LABS: HEMATOCRIT 34.8 % (37.0-47.0); HEMOGLOBIN 11.1 gm/dL (12.0-15.0); MCH 29.4 pg (26.0-34.0); MCHC 31.9 g/dL (28.0-37.0); MCV 92.1 fL (80.0-100.0); RBC 3.78 mil/uL (4.20-5.00); RDW 17.6 % (10.5-14.5); WBC 3.5 thou/uL (4.0-11.0)
[2021-05-18 06:22] LABS: CALCIUM 8.3 mg/dL (8.5-10.1); CREATININE 0.6 mg/dL (0.6-1.0); POTASSIUM 3.1 mmol/L (3.5-5.1)
[2021-05-18 07:24] VITALS: BP 161/101
--- NOTE | 2021-05-18 14:10 | NUR ---
PT ADMITTED RELATED TO SMALL BOWEL OBSTRUCTION. CM REVIEWED CHART AND SPOKE WITH CARE TEAM. CM MET WITH PT AT BEDSIDE THIS DAY. PT APPEARED TO BE A&O X4. CM ROLE INTRODUCED. PT INDICATED SHE LIVES IN A [place]UPLEX WITH HER BOYFRIEND WITH NO STEPS TO ENTER AND NO STEPS INSIDE. 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 PT INDICATED NO DME SOCIAL MEDIA EDITOR. PT INDICATED SHE PLANS TO RETURN HOME ONCE MEDICALLY STABLE. CM FOLLOWING REGARDING DC PLANNING.
[2021-05-18 15:22] VITALS: BP 171/79
--- NOTE | 2021-05-18 18:43 | NUR ---
Assumed pt care this am, maintianed NPO. N& v present had green emesis 2x. Pain is managed with medications, partial relief is noted. informed will aintain NPO. POC followed, partial relief noted. Endorse to the night nurse. Pt is up ad true.
[2021-05-18 19:15] VITALS: BP 156/98
--- NOTE | 2021-05-19 03:52 | NUR ---
ASSUMED CARE OF PT AT 1900. BEDSIDE REPORT RECIEVED. TOBY ASSESSMETN COMPLETE. R AND L PIV PATENT AND SECURE. PT UP ADLIB. MEDS GIVEN PER SEP. PT REQUESTING ATIVAN, NOTIFIED OPTICAL TECHNICIAN. NO NEW ORDERS AT THIS TIEM. PROVIDED PT EDUCATION. HOURLY ROUNDING CONTINUING. ALL MEEDS MET, CALL LIGHT IN REACH
[2021-05-19 07:36] VITALS: BP 181/89
[2021-05-19 12:29] VITALS: BP 197/88
--- NOTE | 2021-05-19 14:35 | NUR ---
PT HAD GI SERIES DONE THIS DAY. IT IS ANTICIPATED THAT PT WILL BE ABLE TO DC HOME ONCE MEDICALLY STABLE LIKELY WITH NO NEEDS. PT WILL NEED [facility]ARE TRASNPORT UPON DC. CALL SET UP TRANSPORT YOU WILL NEED PT'S MEDICAID NUMBER IT IS ON HER FACESHEET. THEY WILL GIVE YOU A THREE HOUR WINDOW.
[2021-05-19 16:30] VITALS: BP 155/82
--- NOTE | 2021-05-19 19:52 | NUR ---
Assumed pt care this am, elevated bp managed with medications. Went down for a GI series this am. Pain is managed with medications, partial relief is noted, wanting pain meds on the dot. Up ad true, POC followed with no signs of distress noted. Endorsed to the night nurse.
[2021-05-19 20:14] VITALS: BP 141/87
--- NOTE | 2021-05-20 03:45 | NUR ---
Pt. rested quietly at intervals during the night when checked on during frequent rounds. She has been given pain mmeds for c/o abdominal pain (see emar) with some relief. Antinausea med given also (see emar) for c/o nausea with some rleief noted. She also c/o anxiety and ativan given (see emar). Pt. has been up ad true.
[2021-05-20 08:05] VITALS: BP 183/87
--- NOTE | 2021-05-20 14:02 | NUR ---
Assumed pt care this am vs stable pt is up ad true. No nausea or vomiting noted pain and anxiety is managed with medications, was asleep most of the day. POC followed.
[2021-05-20 14:57] LABS: CALCIUM 8.7 mg/dL (8.5-10.1); CREATININE 0.6 mg/dL (0.6-1.0); MAGNESIUM 2.1 mg/dL (1.8-2.4)
[2021-05-20 15:05] LABS: POTASSIUM 2.8 mmol/L (3.5-5.1)
[2021-05-20 15:35] VITALS: BP 164/63
[2021-05-20 19:19] VITALS: BP 169/81
[2021-05-21 07:17] VITALS: BP 163/105
--- NOTE | 2021-05-21 07:50 | NUR ---
Pt. rested quietly at intervals during the night when checked on during frequent rounds. She has been medicated for c/o abdominal pain and nausea (see emar) with some relief noted.
[2021-05-21] MEDS ORDERED: ZOFRAN ODT4 MG SUBLING (11:03)
[2021-05-21 11:12] VITALS: BP 163/105
--- NOTE | 2021-05-21 11:18 | NUR ---
Assued pt care this am vs stable, steady on her gait and would walk the halls. Diet and medications are tolerarted well. Constantly requesting pain and anxiety medications, though signs of pain does not match pain scale stated by the pt. Pt is requesting to be dc early due to a "family emergency" if not she will go ama. When asked earlier if she had family to bring her landscape nurseryman since pt has been asking staff, pt mentioned she does not have family in town. POC followed, no signs of distress noted, IV removed, dc instructions given. Pt is now dc and left the unit to get her own transportion.
--- NOTE | 2021-05-22 07:30 | NUR ---
ORDERS FOR P.T. EVAL AND TREAT HOWEVER Pt DISCHARGED FROM THE HOSPITAL PRIOR TO BEING SEEN
== END 2021-05-21 11:20 | disposition home or self-care (01) | DRG 389 ==
LOC: ER 15:10 → EROBS 19:05 → 4W 19:05
PROVIDERS: Emergency Medicine; Nurse Practitioner Family; ADMIT Internal Medicine; ATTEND Internal Medicine
DX: K56.609 Unspecified intestinal obstruction, unspecified as to partial versus complete obstruction (principal); G10 Huntington's disease; R10.9 Unspecified abdominal pain; F17.210 Nicotine dependence, cigarettes, uncomplicated; K22.2 Esophageal obstruction; K31.84 Gastroparesis; G89.4 Chronic pain syndrome; E03.9 Hypothyroidism, unspecified; F41.1 Generalized anxiety disorder; D64.9 Anemia, unspecified; K66.0 Peritoneal adhesions (postprocedural) (postinfection); Z20.822 Contact with and (suspected) exposure to COVID-19; Z87.11 Personal history of peptic ulcer disease; Z87.442 Personal history of urinary calculi; Z90.49 Acquired absence of other specified parts of digestive tract; Z86.14 Personal history of Methicillin resistant Staphylococcus aureus infection; Z88.1 Allergy status to other antibiotic agents; Z88.8 Allergy status to other drugs, medicaments and biological substances; Z93.1 Gastrostomy status
CPT/HCPCS: 10040

== ENCOUNTER 2021-06-09 09:06 | Emergency (ER) | payer OTHER ==
[~2021-06-09] VITALS: Ht 154.9 cm; Wt 43.1 kg
[~2021-06-09 09:06] MED LIST changes: +BUSPIRONE HCL5 MG PO
[2021-06-09 09:42] LABS: ABSOLUTE NEUTROPHILS 3.4 thou/uL (1.4-8.2); BASOPHILS 1.1 % (0.0-2.0); HEMATOCRIT 41.4 % (37.0-47.0); HEMOGLOBIN 13.3 gm/dL (12.0-15.0); MCH 29.3 pg (26.0-34.0); MCV 91.5 fL (80.0-100.0); MONOCYTES 6.2 % (1.0-8.0); PLATELET COUNT 209 thou/uL (150-400); POLYS 67.7 % (36.0-66.0); RBC 4.53 mil/uL (4.20-5.00); RDW 17.2 % (10.5-14.5); WBC 5.1 thou/uL (4.0-11.0)
[2021-06-09 09:49] LABS: URINE BILIRUBIN NEGATIVE (Negative); URINE BLOOD TRACE (Negative); URINE CLARITY CLEAR; URINE COLOR YELLOW; URINE GLUCOSE-RANDOM* NEGATIVE (Negative); URINE KETONES TRACE (Negative); URINE LEUKOCYTES-REFLEX NEGATIVE (Negative); URINE NITRITE-REFLEX NEGATIVE (Negative); URINE PROTEIN (DIPSTICK) NEGATIVE (Negative); URINE SPECIFIC GRAVITY 1.025 (1.005-1.035); URINE UROBILINOGEN 0.2 E.U./dl (0.2-1.0)
[2021-06-09 09:49] LABS: CALCIUM 8.7 mg/dL (8.5-10.1); CREATININE 0.6 mg/dL (0.6-1.0)
[2021-06-09 09:56] LABS: ALBUMIN 3.4 g/dL (3.4-5.0); TOTAL BILIRUBIN 0.2 mg/dL (0.2-1.0); TOTAL PROTEIN 7.5 g/dL (6.4-8.2)
[2021-06-09 11:14] VITALS: BP 178/106
== END 2021-06-09 11:16 | disposition home or self-care (01) ==
LOC: ER 09:06
PROVIDERS: Emergency Medicine
DX: R10.11 Right upper quadrant pain (principal); K31.84 Gastroparesis; F17.210 Nicotine dependence, cigarettes, uncomplicated; Z90.49 Acquired absence of other specified parts of digestive tract; Z98.890 Other specified postprocedural states; Z79.899 Other long term (current) drug therapy; Z79.891 Long term (current) use of opiate analgesic; Z79.1 Long term (current) use of non-steroidal anti-inflammatories (NSAID); Z88.6 Allergy status to analgesic agent; Z88.4 Allergy status to anesthetic agent; Z91.02 Food additives allergy status; Z88.5 Allergy status to narcotic agent; Z88.8 Allergy status to other drugs, medicaments and biological substances; Z91.018 Allergy to other foods

== ENCOUNTER 2021-07-14 10:27 | Emergency (ER) | payer OTHER ==
[~2021-07-14] VITALS: Ht 154.9 cm; Wt 42.2 kg
[2021-07-14 12:00] LABS: URINE BILIRUBIN NEGATIVE (Negative); URINE BLOOD 1+ (Negative); URINE CLARITY CLEAR; URINE COLOR YELLOW; URINE GLUCOSE-RANDOM* NEGATIVE (Negative); URINE KETONES NEGATIVE (Negative); URINE LEUKOCYTES-REFLEX NEGATIVE (Negative); URINE NITRITE-REFLEX NEGATIVE (Negative); URINE PROTEIN (DIPSTICK) NEGATIVE (Negative); URINE UROBILINOGEN 0.2 E.U./dl (0.2-1.0)
[2021-07-14 12:05] LABS: ABSOLUTE NEUTROPHILS 3.1 thou/uL (1.4-8.2); BASOPHILS 0.8 % (0.0-2.0); EOSINOPHILS 0.9 % (0.0-3.0); LYMPHOCYTES 19.9 % (24.0-44.0); MCH 29.3 pg (26.0-34.0); MCHC 32.2 g/dL (28.0-37.0); MCV 91.1 fL (80.0-100.0); MONOCYTES 8.7 % (1.0-8.0); PLATELET COUNT 242 thou/uL (150-400); POLYS 69.7 % (36.0-66.0); RBC 3.41 mil/uL (4.20-5.00); RDW 15.3 % (10.5-14.5); WBC 4.5 thou/uL (4.0-11.0)
[2021-07-14 12:15] LABS: CASTS None Seen /LPF (None Seen); SQUAMOUS None Seen /LPF (0-3)
[2021-07-14 12:16] LABS: URINE RBC 3-10 Few /HPF (NONE SEEN); URINE WBC-REFLEX 0-5 Rare /HPF (0-5)
[2021-07-14 12:17] LABS: BACTERIA-REFLEX 1-9 Few /HPF (None Seen); CRYSTALS None Seen /LPF (None Seen)
[2021-07-14 12:23] LABS: ALBUMIN 2.9 g/dL (3.4-5.0); CALCIUM 8.1 mg/dL (8.5-10.1); CREATININE 0.5 mg/dL (0.6-1.0); TOTAL BILIRUBIN 0.1 mg/dL (0.2-1.0); TOTAL PROTEIN 6.3 g/dL (6.4-8.2)
[2021-07-14 12:26] LABS: POTASSIUM 2.7 mmol/L (3.5-5.1)
[2021-07-14 15:23] VITALS: BP 168/78
--- NOTE | 2021-07-15 10:59 | EKG ---
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 : 1970 Requested By: Bethany Ho Order Number: [id number] MD: Garrett Burroughs Measurements Intervals [place] Rate: 61 P: 70 VA: 118 QRS: 54 QRSD: 89 T: 40 QT: 456 QTc: 460 Interpretive Statements Sinus rhythm Borderline short VA interval Probable left atrial enlargement Borderline T abnormalities, anterior leads Compared to ECG 10/28/2019 10:06:30 T-wave abnormality now present Electronically Signed On 07-15-2021 10:58:54 REGISTERED ROUTE ASSOCIATE by Garrett Burroughs [email or web address] <ELECTRONICALLY SIGNED> By: Garrett Burroughs MD 07/15/21 1058 1434 1434 MD DAVIDE Casiano
== END 2021-07-14 15:18 | disposition left against medical advice (07) ==
LOC: ER 10:27
PROVIDERS: Nurse Practitioner
DX: N20.0 Calculus of kidney (principal); Z20.822 Contact with and (suspected) exposure to COVID-19; K56.609 Unspecified intestinal obstruction, unspecified as to partial versus complete obstruction; E87.6 Hypokalemia; K31.84 Gastroparesis; F17.210 Nicotine dependence, cigarettes, uncomplicated; Z90.49 Acquired absence of other specified parts of digestive tract; Z98.890 Other specified postprocedural states; Z79.1 Long term (current) use of non-steroidal anti-inflammatories (NSAID); Z79.891 Long term (current) use of opiate analgesic; Z79.899 Other long term (current) drug therapy; Z88.6 Allergy status to analgesic agent; Z88.1 Allergy status to other antibiotic agents; Z88.5 Allergy status to narcotic agent; Z88.8 Allergy status to other drugs, medicaments and biological substances; Z91.018 Allergy to other foods; Z91.048 Other nonmedicinal substance allergy status

== ENCOUNTER 2021-08-01 11:16 | Emergency (ER) | payer OTHER ==
[~2021-08-01] VITALS: Ht 154.9 cm; Wt 45.4 kg
[2021-08-01 13:27] LABS: BASOPHILS 0.6 % (0.0-2.0); EOSINOPHILS 1.2 % (0.0-3.0); HEMATOCRIT 37.6 % (37.0-47.0); LYMPHOCYTES 32.4 % (24.0-44.0); MCH 28.4 pg (26.0-34.0); MCHC 31.9 g/dL (28.0-37.0); MCV 89.2 fL (80.0-100.0); MONOCYTES 6.4 % (1.0-8.0); PLATELET COUNT 238 thou/uL (150-400); POLYS 59.4 % (36.0-66.0); RBC 4.21 mil/uL (4.20-5.00); WBC 3.4 thou/uL (4.0-11.0)
[2021-08-01 13:46] LABS: CALCIUM 8.6 mg/dL (8.5-10.1); CREATININE 0.6 mg/dL (0.6-1.0); POTASSIUM 3.8 mmol/L (3.5-5.1)
[2021-08-01 13:52] LABS: ALBUMIN 3.3 g/dL (3.4-5.0); TOTAL BILIRUBIN 0.1 mg/dL (0.2-1.0); TOTAL PROTEIN 6.8 g/dL (6.4-8.2)
[2021-08-01] MEDS ORDERED: NORCO5 PO (16:27)
[2021-08-01] MEDS ORDERED: BENTYL 10 MG CA10 M1 PO (16:27)
[2021-08-01 17:36] VITALS: BP 162/83
== END 2021-08-01 17:36 | disposition home or self-care (01) ==
LOC: ER 11:16
PROVIDERS: Emergency Medicine
DX: R10.13 Epigastric pain (principal); R11.2 Nausea with vomiting, unspecified; F17.210 Nicotine dependence, cigarettes, uncomplicated; Z79.899 Other long term (current) drug therapy; Z91.02 Food additives allergy status; Z88.5 Allergy status to narcotic agent; Z88.6 Allergy status to analgesic agent

== ENCOUNTER 2021-09-04 23:44 | Inpatient (IN) | payer OTHER ==
[~2021-09-04] VITALS: Ht 154.9 cm; Wt 47.3 kg
[~2021-09-04 23:44] MED LIST changes: +NORCO5 PO
[2021-09-04 23:45] VITALS: BP 173/76
[2021-09-05 00:36] LABS: URINE BILIRUBIN NEGATIVE (Negative); URINE BLOOD NEGATIVE (Negative); URINE CLARITY CLEAR; URINE COLOR YELLOW; URINE GLUCOSE-RANDOM* NEGATIVE (Negative); URINE KETONES NEGATIVE (Negative); URINE LEUKOCYTES-REFLEX NEGATIVE (Negative); URINE NITRITE-REFLEX NEGATIVE (Negative); URINE PROTEIN (DIPSTICK) NEGATIVE (Negative); URINE SPECIFIC GRAVITY 1.025 (1.005-1.035); URINE UROBILINOGEN 0.2 E.U./dl (0.2-1.0)
[2021-09-05 00:53] LABS: ABSOLUTE NEUTROPHILS 2.7 thou/uL (1.4-8.2); BASOPHILS 0.9 % (0.0-2.0); EOSINOPHILS 4.7 % (0.0-3.0); HEMATOCRIT 31.3 % (37.0-47.0); HEMOGLOBIN 10.2 gm/dL (12.0-15.0); LYMPHOCYTES 26.4 % (24.0-44.0); MCH 28.4 pg (26.0-34.0); MCHC 32.4 g/dL (28.0-37.0); MCV 87.6 fL (80.0-100.0); PLATELET COUNT 220 thou/uL (150-400); RBC 3.58 mil/uL (4.20-5.00); RDW 16.4 % (10.5-14.5); WBC 4.7 thou/uL (4.0-11.0)
[2021-09-05 01:01] LABS: ANION GAP 10 mmol/L (7-16); BUN 13 mg/dL (7-18); CALCIUM 8.4 mg/dL (8.5-10.1); CHLORIDE 109 mmol/L (98-107); CO2 28 mmol/L (21-32); CREATININE 0.6 mg/dL (0.6-1.0); GLUCOSE 89 mg/dL (74-106); SODIUM 147 mmol/L (136-145)
[2021-09-05 01:05] LABS: LIPASE 126 U/L (73-393); SGOT 17 U/L (15-37); SGPT 19 U/L (14-59); TOTAL BILIRUBIN < 0.1 mg/dL (0.2-1.0); TOTAL PROTEIN 5.7 g/dL (6.4-8.2)
[2021-09-05 06:22] VITALS: BP 156/71
[2021-09-05 09:49] VITALS: BP 146/77
[2021-09-05 14:32] LABS: FOLIC ACID 9.7 ng/mL (8.6-58.9)
[2021-09-05 21:45] VITALS: BP 155/79
[2021-09-05 22:36] VITALS: BP 155/79
--- NOTE | 2021-09-05 23:28 | NUR ---
ATTEMPTED TO CALL REPORT TO RN ON THE FLOOR. RN NOT AVAILABLE AT THIS TIME. RN WILL CALL BACK TO ER IN A FEW MINUTES.
--- NOTE | 2021-09-06 00:15 | NUR ---
REPORT GIVEN TO JON ROJO ON THE FLOOR. PT READY FOR TRANSPORT TO HER NEW ROOM.
[2021-09-06 00:45] VITALS: BP 113/75
--- NOTE | 2021-09-06 01:37 | NUR ---
PT ADMITTED FROM ER AROUND 0030, ALERT AND ORIENTEDX4, ON RA, REGULAR RHYTHM, VSS, ADMISSION HX, ASSESSMENT, EDUCATION COMPLETED, NO NAUSEA AND VOMIHTINMG NOTED, MEDS GIVEN PER SEP, WILL CONTINUE TO MONITOR
--- NOTE | 2021-09-06 08:49 | NUR ---
UPON ENTERING PATIENTS ROOM NURSE TOLD PATIENT THAT A TRANSPORTER WOULD BE IN A LITTLE BIT TO TAKE HER DOWN FOR A BOWEL SERIES AND SHE SAID NO ONE TOLD HER ABOUT THAT AND SHE WAS ALREADY FULLY DRESSED AND REQUESTED TO LEAVE AMA. NURSE ASKED WHY SHE SAID SHES READY TO GO HOME NOW. NURSE GOT AMA FORM, PATIENT SIGNED @ 0843 AND LEFT EJ PULLED PRESSURE, GAUZE AND TAPE APPILED, LEFT HAND PIV PULLED GAUZE PRESSURE AND TAPE APPILED. DR. MIXON CALLED BACK 0856 AND MADE AWARE CARYL NURSE, [employer] MEDICAL SUPPLY TECHNICIAN MADE AWARE. INCIDENT REPORT WILL BE DONE.
== END 2021-09-06 08:43 | disposition home or self-care (01) | DRG 389 ==
LOC: ER 23:44 → EROBS 09-05 04:37 → 4W 09-05 23:13
PROVIDERS: Emergency Medicine; Hospitalist; ADMIT Internal Medicine; ATTEND Internal Medicine
DX: K56.609 Unspecified intestinal obstruction, unspecified as to partial versus complete obstruction (principal); G10 Huntington's disease; F17.210 Nicotine dependence, cigarettes, uncomplicated; E87.6 Hypokalemia; F41.1 Generalized anxiety disorder; G89.4 Chronic pain syndrome; Z20.822 Contact with and (suspected) exposure to COVID-19; E03.9 Hypothyroidism, unspecified; R10.9 Unspecified abdominal pain; Z88.8 Allergy status to other drugs, medicaments and biological substances; Z88.1 Allergy status to other antibiotic agents; Z91.02 Food additives allergy status
CPT/HCPCS: 10040

== ENCOUNTER 2021-09-21 09:45 | Emergency (ER) | payer OTHER ==
[~2021-09-21] VITALS: Ht 157.5 cm; Wt 52.2 kg
[2021-09-21 11:24] VITALS: BP 146/65
== END 2021-09-21 11:20 | disposition home or self-care (01) ==
LOC: ER 09:45
DX: S00.83XA Contusion of other part of head, initial encounter (principal); F17.210 Nicotine dependence, cigarettes, uncomplicated; Z88.6 Allergy status to analgesic agent; Z91.018 Allergy to other foods; Z79.899 Other long term (current) drug therapy; Z88.8 Allergy status to other drugs, medicaments and biological substances; W18.30XA Fall on same level, unspecified, initial encounter; Y93.89 Activity, other specified; Y92.89 Other specified places as the place of occurrence of the external cause; Y99.8 Other external cause status